=== PATIENT | female | born 1955 | race Caucasian/White ===

== ENCOUNTER → 2024-07-29 10:01 | Outpatient (REF) | payer BC, SELFPAY | LOC: RAD 10:01 | PROVIDERS: ATTENDING PHYSICIAN Internal Medicine Rheumatology; FAMILY PHYSICIAN Internal Medicine | DX: M81.0 Age-related osteoporosis without current pathological fracture (principal) | CPT/HCPCS: 77080 ==

== ENCOUNTER → 2024-08-20 10:41 | Outpatient (REF) | payer BC, SELFPAY | LOC: WDC 10:41 | PROVIDERS: ATTENDING PHYSICIAN Nurse Practitioner Women's Health; FAMILY PHYSICIAN Internal Medicine | DX: Z12.31 Encounter for screening mammogram for malignant neoplasm of breast (principal) | CPT/HCPCS: 77063; 77067 ==